=== PATIENT | female | born 1960 | race Hispanic/Latino ===

== ENCOUNTER 2023-11-06 15:46 | Observation (INO) | payer OTHER ==
[~2023-11-06] VITALS: Ht 162.6 cm; Wt 93.9 kg
[2023-11-06] VITALS (10 sets, daily range): BP systolic 158–244; BP diastolic 92–132; PULSE 78–102; RESP 17–25; TEMP 98.3; O2SAT 95–99
[2023-11-06] MEDS: HYDRALAZINE HCL 20 MG/ML VIAL IV STA (17:28)
[2023-11-06 17:40] LABS: BASOPHILS # (AUTO) 0.1 (0.0-0.1); BASOPHILS % 0.6 % (0.0-1.0); EOSINOPHILS # (AUTO) 0.2 (0.0-0.4); HEMATOCRIT 29.6 % (34.2-44.1); LYMPHOCYTES # (AUTO) 1.3 (1.0-3.2); LYMPHOCYTES % 16.2 % (18.0-39.1); MEAN CORPUSCULAR HGB CONC 33.8 g/dL (31-35); MEAN CORPUSCULAR VOLUME 85.8 fL (81-99); MONOCYTES # (AUTO) 0.8 (0.2-0.8); MONOCYTES % 9.9 % (4.4-11.3); NEUTROPHILS # (AUTO) 5.6 (2.1-6.9); NEUTROPHILS % 69.8 % (38.7-80.0); PLATELET COUNT 224 x10e3/uL (140-360); RED BLOOD COUNT 3.45 x10e6/uL (3.6-5.1); RED CELL DISTRIBUTION WIDTH 13.6 % (11.7-14.4); WHITE BLOOD COUNT 7.96 x10e3/uL (4.8-10.8)
[2023-11-06 17:56] LABS: ALBUMIN 3.2 g/dL (3.5-5.0); ALBUMIN/GLOBULIN RATIO 0.8 (0.8-2.0); ANION GAP 18.2 mmol/L (8-16); BILIRUBIN,TOTAL 0.3 mg/dL (0.2-1.2); CALCIUM 8.3 mg/dL (8.4-10.2); CREATININE, SERUM 3.74 mg/dL (0.57-1.11); TOTAL PROTEIN 7.1 g/dL (6.5-8.1)
[2023-11-06 17:57] LABS: POTASSIUM 3.2 mmol/L (3.5-5.1)
[2023-11-06] MEDS ORDERED: SODIUM CHLORIDE FLUSH 10 ML SYR INJ PRN (18:15)
[2023-11-06] MEDS ORDERED: MUPIROCIN 2% OINT 22 GM TUBE TOP SCH (18:15)
[2023-11-06] MEDS ORDERED: ONDANSETRON HCL INJ 2MG/ML 2ML 2 MG/ML VIAL IV PRN (18:15)
[2023-11-06] MEDS: HYDRALAZINE HCL 20 MG/ML VIAL IV PRN (19:53)
[2023-11-06] MEDS ORDERED: FARXIGA5 MG PO (22:27)
[2023-11-06] MEDS ORDERED: CARVEDILOL12.5 MG PO (22:27)
[2023-11-06] MEDS ORDERED: CLONIDINE HCL0.3 MG PO (22:27)
[2023-11-06] MEDS ORDERED: HYDRALAZINE HCL50 MG PO (22:27)
[2023-11-06] MEDS ORDERED: VALSARTAN-HCTZ1 EAC3 PO (22:27)
[2023-11-06] MEDS: CLONIDINE HCL 0.3 MG TAB PO SCH (22:53)
[2023-11-06] MEDS: HYDRALAZINE HCL 25 MG TAB PO SCH (22:53)
[2023-11-06] MEDS: ACETAMINOPHEN 325 MG TAB PO PRN (23:13)
[2023-11-07] VITALS (24 sets, daily range): BP systolic 133–175; BP diastolic 79–98; PULSE 59–84; RESP 16–23; TEMP 97.2–98.3; O2SAT 91–100
[2023-11-07] MEDS ORDERED: DOCUSATE SODIUM 100 MG CAP PO PRN (01:30)
[2023-11-07] MEDS ORDERED: MELATONIN 3 MG TAB PO PRN (01:30)
[2023-11-07] MEDS ORDERED: DEXTROSE 50% SYRINGE 50 ML IV PRN (01:30)
[2023-11-07] MEDS ORDERED: GUAIFENESIN/DEXTROMETHORPHAN LIQD 5 ML UDC PO PRN (01:30)
[2023-11-07] MEDS: SODIUM CHLORIDE 0.9% 500ML 500 ML IV ONE (01:58)
[2023-11-07] MEDS: HYDRALAZINE HCL 25 MG TAB PO SCH (06:06)
[2023-11-07] MEDS: INSULIN REGULAR, HUMAN 100 UNIT/1 ML SQ SCH (07:30)
[2023-11-07 08:24] LABS: BASOPHILS % 0.6 % (0.0-1.0); EOSINOPHILS # (AUTO) 0.3 (0.0-0.4); EOSINOPHILS % 3.6 % (0.0-6.0); HEMATOCRIT 29.7 % (34.2-44.1); HEMOGLOBIN 9.8 g/dL (12.0-16.0); LYMPHOCYTES # (AUTO) 1.3 (1.0-3.2); LYMPHOCYTES % 18.7 % (18.0-39.1); MEAN CORPUSCULAR HEMOGLOBIN 29.1 pg (28-32); MEAN CORPUSCULAR VOLUME 88.1 fL (81-99); MONOCYTES # (AUTO) 0.5 (0.2-0.8); MONOCYTES % 7.4 % (4.4-11.3); NEUTROPHILS % 69.4 % (38.7-80.0); PLATELET COUNT 235 x10e3/uL (140-360); RED BLOOD COUNT 3.37 x10e6/uL (3.6-5.1); WHITE BLOOD COUNT 7.13 x10e3/uL (4.8-10.8)
[2023-11-07] MEDS: CLONIDINE HCL 0.1 MG TAB PO SCH (08:42)
[2023-11-07] MEDS: MULTIVITAMINS/MINERALS TAB PO SCH (08:43)
[2023-11-07] MEDS: CARVEDILOL 3.125 MG TAB PO SCH (08:43)
[2023-11-07 08:50] LABS: ALBUMIN/GLOBULIN RATIO 0.8 (0.8-2.0); ANION GAP 17.2 mmol/L (8-16); BILIRUBIN,TOTAL 0.4 mg/dL (0.2-1.2); CALCIUM 8.5 mg/dL (8.4-10.2); CREATININE, SERUM 3.26 mg/dL (0.57-1.11); TOTAL PROTEIN 6.7 g/dL (6.5-8.1)
[2023-11-07 09:03] LABS: POTASSIUM 3.2 mmol/L (3.5-5.1)
[2023-11-07] MEDS ORDERED: HYDRALAZINE HCL50 MG PO (12:35)
[2023-11-07] MEDS ORDERED: CLONIDINE HCL0.1 MG PO (12:35)
== END 2023-11-07 13:30 | disposition home or self-care (01) ==
LOC: ER 16:20 → ERHOLD 18:25 → ICU 21:35
PROVIDERS: ADMIT Internal Medicine Critical Care Medicine; ATTEND Internal Medicine Critical Care Medicine
DX: I16.1 Hypertensive emergency (principal); I12.9 Hypertensive chronic kidney disease with stage 1 through stage 4 chronic kidney disease, or unspecified chronic kidney disease; E11.22 Type 2 diabetes mellitus with diabetic chronic kidney disease; N18.4 Chronic kidney disease, stage 4 (severe); Z79.84 Long term (current) use of oral hypoglycemic drugs; M54.2 Cervicalgia; J45.909 Unspecified asthma, uncomplicated; E78.5 Hyperlipidemia, unspecified; E66.01 Morbid (severe) obesity due to excess calories; Z68.35 Body mass index [BMI] 35.0-35.9, adult; Z11.52 Encounter for screening for COVID-19; Z79.899 Other long term (current) drug therapy
CPT/HCPCS: 36415 ×2; 70450; 80053 ×2; 82948; 85025 ×2; 96372; 99284; G0378 ×2; J0360 ×2; J7040; U0002